=== PATIENT | male | born 1950 | race Caucasian/White ===

== ENCOUNTER 2016-05-13 17:38 | Emergency (ER) | payer OTHER ==
[2016-05-13 18:00] VITALS: TEMP 98
--- NOTE | 2016-05-13 20:21 | EDPHY ---
H & P Time Seen by Provider: 05/13/16 20:07 HPI/ROS: CHIEF COMPLAINT: Right leg swelling HISTORY OF PRESENT ILLNESS: Flew back from [place] Tuesday, noticed last night swelling medial right knee just above the knee. Nontraumatic. Not better worse with palpation or motion of the leg. REVIEW OF SYSTEMS: No chest pain or shortness of breath PAST MEDICAL HISTORY: Artificial titanium right ankle, hypertension. Social history: Primary care is Dr. Saud Marcano, Orthopedics is [facility]. Freitas General Appearance: Alert and conversant, cooperative. Swelling medial right distal thigh just above the knee. Normal range of motion of the knee. Normal motor and sensory and vascular in the foot. Normal skin appearance without redness or lymphangitis or change in temperature Emergency Department course/MDM: Ultrasound ordered. Clinically unlikely to have cellulitis or abscess, compartment syndrome, arterial occlusion. Ultrasound results and mandatory follow-up discussed with the patient at 10:10 p.m.. He is warned that malignancy cannot be excluded and he must see his orthopedist regarding this ; he has appt tuesday. Smoking Status: Never smoked Constitutional: Initial Vital Signs Temperature (C) 36.6 C 05/13/16 17:57 Heart Rate 95 05/13/16 17:57 Respiratory Rate 18 05/13/16 17:57 Blood Pressure 166/90 H 05/13/16 17:57 O2 Sat (%) 97 05/13/16 17:57 O2 Delivery Mode Room Air Allergies/Adverse Reactions: No Known Allergies Allergy (Unverified 05/13/16 17:57) Home Medications: Medication Instructions Recorded Metformin 1000 mg 05/13/16 Medical Decision Making - Diagnostics Imaging: Ultrasound viewed independently by myself and discussed with radiologist shows no DVT or other abnormality. Mass viewed, likely lipoma. Can not exclude liposarcoma or other type of mass. Differential Diagnosis: Differential considered including but not limited to lipoma, hematoma, Massey cyst, DVT, abscess. Departure - Departure Disposition: Home, Routine, Self-Care Clinical Impression: Swelling of thigh Condition: Good Instructions: Ultrasound (GEN) Additional Instructions: Ultrasound did not show blood clot or fluid collection. Please return for evaluation if he gets skin changes or fever or pain, or worsening swelling. Mandatory follow-up with your orthopedist within the next 1-2 weeks. You need to discuss whether further advanced imaging, or removal of this mass is indicated. Referrals: SAUD MARCANO [Primary Care Provider] - As per Instructions NOÉ FREITAS [Non Staff Provider ()] - 05/17/16 (Mandatory office evaluation for this mass. Likely a lipoma, but another type of problem such as cancer cannot be completely excluded in the emergency department. Please bring computer disc with US on it to your appointment.)
[2016-05-13 20:28] VITALS: RESP 16
--- NOTE | 2016-05-13 22:15 | US ---
Ultrasound Venous Doppler Study of the Right Lower Extremity History: Leg pain and focal swelling; evaluate for deep vein thrombosis. Technique: High frequency transducer was used for imaging and Doppler study of the veins of the right lower extremity. Pulsed Doppler and color Doppler were utilized, along with various maneuvers to as sess flow in the veins. Findings: The deep veins of the right lower extremity are normally compressible between the groin and the upper calf and have normal Doppler waveforms within them. No venous thrombosis is identified. In the area of palpable abnormality there is a nodular asymmetry measuring 2.4 x 1.5 cm showing homog eneous slightly increased echogenicity. This may represent a lipoma. The characteristics do not sugge st hematoma. Impression: 1. No evidence of deep vein thrombosis in the right lower extremity. 2. Palpable area corresponds to a solid slightly hyperechoic nodule measuring 2.4 x 1.5 cm. This may represent a lipoma. This could be followed clinically or if a more definitive characterization is con sidered indicated, MRI might be of value. Results discussed with Dr. Kramer from the emergency department.
[2016-05-13 22:19] VITALS: BP 128/89; PULSE 99; O2SAT 93
== END 2016-05-13 22:30 | disposition home or self-care (01) ==
LOC: CED 17:38
DX: M79.89 Other specified soft tissue disorders (principal); I10 Essential (primary) hypertension

== ENCOUNTER 2016-12-16 18:24 | Emergency (ER) | payer OTHER ==
[2016-12-16 18:37] VITALS: BP 115/76; PULSE 102; RESP 18; TEMP 98.1; O2SAT 93
--- NOTE | 2016-12-16 18:58 | EDPHY ---
H & P Time Seen by Provider: 12/16/16 18:47 HPI/ROS: 4 days ago this patient noted some swelling to the dorsum of his left hand after working out in the [employer]. He describes this initially as an area 2 cm in size of swelling and redness overlying the 2nd metacarpal region and since that time swelling and that isolated region is diminished but erythema has spread to cover the dorsum of his hand he denies any sick good discomfort associated with this but due to the increasing redness and warmth to touch she was concerned about infection and assumed that he had a spider bite as the cause. 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 He did not notice any other wounds to his hand prior to the onset of symptoms. He also did not notice any pain while working in the [employer] ROS: No fevers or chills. No other constitutional symptoms. GI: No nausea vomiting Neuro: No numbness to the hand Integumentary: No other skin lesions 5 point ROS is otherwise negative. Past Medical/Surgical History: Otherwise notable for diabetes on metformin, hypertension and hypercholesterolemia Smoking Status: Never smoked Physical Exam: Physical Exam Vital signs are normal. General: No acute distress Eyes: Pupils equal and react to light. Extraocular motions are intact. Lungs: No respiratory distress. Cardiac: Brisk capillary refill is intact throughout. Skin: Patient has confluent erythema to the dorsum of his left hand with warmth to touch. No fluctuance. No foreign bodies are appreciated. There is no erythema extends to the fingers or up the forearm. No erythema to the palmar aspect of his hand. Neuro: Alert with no sensorimotor deficits in the affected extremity Initial differential diagnosis: Insect bites or minor wound from gardening with associated cellulitis no clinical evidence of abscess Constitutional: Initial Vital Signs Temperature (C) 36.7 C 12/16/16 18:35 Heart Rate 102 H 12/16/16 18:35 Respiratory Rate 18 12/16/16 18:35 Blood Pressure 115/76 12/16/16 18:35 O2 Sat (%) 93 12/16/16 18:35 O2 Delivery Mode Room Air Allergies/Adverse Reactions: No Known Allergies Allergy (Unverified 12/16/16 18:34) Home Medications: Medication Instructions Recorded Metformin 1000 mg 05/13/16 Blood Pressure Meds 12/16/16 Cephalexin [Keflex (*)] 500 mg PO TID #30 cap 12/16/16 Cholestrol Med 12/16/16 MDM/Departure - [facility] ED Course/Re-evaluation: I counseled this patient regarding cellulitis. He appears nontoxic with no fever and no GI symptoms. I think that he will do well on oral antibiotic. I counseled him regarding this. - Depart Disposition: Home, Routine, Self-Care Clinical Impression: Cellulitis of hand Condition: Good Instructions: Cephalexin (By mouth), Cellulitis (ED) Additional Instructions: Diagnosis: Hand cellulitis Plan: Apply warm packs to 3 times a day until symptoms resolve Keflex antibiotic Tylenol or ibuprofen if needed for discomfort Return for any significant worsening despite the treatment plan Prescriptions: Cephalexin [Keflex (*)] 500 mg PO TID #30 cap Referrals: YOSELIN DUNN [Primary Care Provider] - As per Instructions
== END 2016-12-16 19:20 | disposition home or self-care (01) ==
LOC: CED 18:24
DX: L03.114 Cellulitis of left upper limb (principal); E11.9 Type 2 diabetes mellitus without complications; I10 Essential (primary) hypertension; Z79.84 Long term (current) use of oral hypoglycemic drugs